=== PATIENT | male | born 1935 | race Caucasian/White ===

== ENCOUNTER → 2018-10-02 | Outpatient (CLI) | payer OTHER ==
[~2018-10-02] MED LIST: ASPI-449 PO; ATOR10TA69 PO; CLOP75TA32 PO; METO-391 PO; VALS80TA30 PO
== END | disposition home or self-care (01) ==
LOC: SHCH 08:04
PROVIDERS: ATTEND Internal Medicine Cardiovascular Disease
DX: I65.23 Occlusion and stenosis of bilateral carotid arteries (principal)
CPT/HCPCS: 93880

== ENCOUNTER → 2019-09-29 | Outpatient (CLI) | payer OTHER | END | disposition home or self-care (01) | LOC: SHCH 14:45 | PROVIDERS: ATTEND Internal Medicine Cardiovascular Disease | DX: I25.10 Atherosclerotic heart disease of native coronary artery without angina pectoris (principal); I10 Essential (primary) hypertension | CPT/HCPCS: 93306 ==

== ENCOUNTER → 2019-10-15 | Outpatient (CLI) | payer OTHER | END | disposition home or self-care (01) | LOC: SHCH 09:40 | PROVIDERS: ATTEND Internal Medicine Cardiovascular Disease | DX: I65.23 Occlusion and stenosis of bilateral carotid arteries (principal); I70.0 Atherosclerosis of aorta; I71.4 Abdominal aortic aneurysm, without rupture | CPT/HCPCS: 93880; 93978 ==

== ENCOUNTER → 2020-10-03 | Outpatient (CLI) | payer MEDICARE | END | disposition home or self-care (01) | LOC: SHCH 14:25 | PROVIDERS: ATTEND Internal Medicine Cardiovascular Disease | DX: I25.10 Atherosclerotic heart disease of native coronary artery without angina pectoris (principal); R06.00 Dyspnea, unspecified | CPT/HCPCS: 93306; 93356 ==

== ENCOUNTER 2020-11-15 05:43 | Day surgery (SDC) | payer MEDICARE ==
[2020-11-13 10:25] LABS: BASOPHILS % (AUTO) 0.3 % (0.0-5.0); EOSINOPHILS % (AUTO) 0.5 % (0.0-8.0); HEMATOCRIT 42.2 % (42-54); LYMPHOCYTES % (AUTO) 10.9 % (21.0-51.0); MEAN CORPUSCULAR HEMOGLOBIN 31.3 pg (27.0-33.0); MEAN CORPUSCULAR HGB CONC 32.7 g/dL (32.0-36.0); MEAN CORPUSCULAR VOLUME 95.7 fL (79-99); NEUTROPHILS % (AUTO) 78.9 % (40.0-77.0); PLATELET COUNT (AUTO) 191 K/uL (130-400); RED BLOOD CELL COUNT(AUTO) 4.41 MIL/uL (4.50-6.20); RED CELL DISTRIBUTION WIDTH 13.4 % (11.0-15.5); WHITE BLOOD COUNT (AUTO) 7.5 K/uL (4.8-10.8)
[2020-11-13 10:26] LABS: APPEARANCE,URINE Clear (CLEAR); BILIRUBIN,URINE Negative (NEGATIVE); COLOR,URINE Yellow (YELLOW); GLUCOSE, URINE (UA) Negative (NEGATIVE); KETONES,URINE Negative (NEGATIVE); LEUKOCYTE ESTERASE ,URINE Negative (NEGATIVE); NITRATE,URINE Negative (NEGATIVE); OCCULT BLOOD,URINE Negative (NEGATIVE); PROTEIN,URINE Negative (NEGATIVE); UROBILINOGEN,URINE 0.2 mg/dL (0.2-1.0)
[2020-11-13 10:32] LABS: CREATININE 1.2 mg/dL (0.5-1.5); POTASSIUM 3.9 mmol/L (3.5-5.1)
[2020-11-13 10:34] LABS: INR 1.06 (0.85-1.15); PROTHROMBIN TIME 11.5 SEC (9.6-11.6)
[2020-11-13 10:35] LABS: PARTIAL THROMBOPLASTIN TIME 27.3 SEC (26.3-35.5)
[2020-11-14 15:32] VITALS: BP 160/80
[~2020-11-15] VITALS: Ht 175.3 cm; Wt 84.3 kg
[2020-11-15] VITALS (10 sets, daily range): BP systolic 119–178; BP diastolic 53–94
[~2020-11-15 05:43] MED LIST changes: +LOSA100T58 PO; -VALS80TA30 PO
[2020-11-15] MEDS ORDERED: SODIUM CHLORIDE 0.9% 1000ML 1,000 ML IV ONE (06:20)
[2020-11-15] MEDS ORDERED: IOHEXOL-350 50ML VIAL IV ONE (07:12)
[2020-11-15] MEDS ORDERED: IOHEXOL 350 MG/ML 100ML INFUS..BTL IV ONE (07:12)
[2020-11-15] MEDS ORDERED: HEPARIN SODIUM 1000UNIT/ML 10ML VIAL ONE (07:12)
[2020-11-15] MEDS ORDERED: SODIUM BICARB 50MEQ 50ML VIAL 50 ML ONE (07:12)
[2020-11-15] MEDS ORDERED: MEPERIDINE-PF 25 MG/ML SYG ONE ×2 (07:12→09:11)
[2020-11-15] MEDS ORDERED: NITROGLYCERIN 2 MG/VIAL VIAL IV ONE (07:12)
[2020-11-15] MEDS ORDERED: LIDOCAINE HCL 2% 20ML ONE (07:13)
[2020-11-15] MEDS ORDERED: MIDAZOLAM HCL 1 MG/ML 2ML VIAL ONE ×2 (07:13→09:11)
[2020-11-15] MEDS ORDERED: METHYLPREDNISOLONE SOD SUCC 125MG/2ML VIAL ONE (07:28)
[2020-11-15] MEDS ORDERED: SODIUM CHLORIDE 0.9% 1000ML 1,000 ML IV SCH ×2 (08:00→09:45)
[2020-11-15] MEDS ORDERED: IOHEXOL-350 75 ML VIAL IV ONE ×2 (08:21→08:52)
[2020-11-15] MEDS ORDERED: HYDRALAZINE HCL 20 MG/ML VIAL ONE (09:13)
[2020-11-15] MEDS ORDERED: ONDANSETRON HCL 4 MG/2 ML VIAL IVP PRN (09:45)
[2020-11-15] MEDS ORDERED: CLOPIDOGREL BISULFATE 300 MG TAB ONE (09:50)
== END 2020-11-15 15:50 | disposition home or self-care (01) ==
LOC: DAH 05:43
PROVIDERS: ATTEND Internal Medicine Cardiovascular Disease
DX: I25.119 Atherosclerotic heart disease of native coronary artery with unspecified angina pectoris (principal); I25.82 Chronic total occlusion of coronary artery; I45.2 Bifascicular block; I10 Essential (primary) hypertension; E78.5 Hyperlipidemia, unspecified; Z79.82 Long term (current) use of aspirin; Z79.01 Long term (current) use of anticoagulants; Z95.1 Presence of aortocoronary bypass graft; Z85.46 Personal history of malignant neoplasm of prostate; Z92.3 Personal history of irradiation; Z79.899 Other long term (current) drug therapy
CPT/HCPCS: 36415 ×2; 71045; 80048; 81003; 85025; 85347 ×2; 85610; 85730; 93005; 93455; 96360; 96361; A4215; A4216; A4221; A4222; A4223 ×3; A4606; A4663; C1725 ×3; C1760; C1769 ×2; C1874; C1887 ×2; C1894 ×2; C9600; J0360; J1644 ×3; J2175 ×2; J2250 ×2; J2930; J3490 ×3; J7030; Q9965; Q9967 ×4; 99156; 99157

== ENCOUNTER → 2022-09-27 | Outpatient (CLI) | payer MEDICARE ==
[~2022-09-27] MED LIST changes: +REGADENOSON 0.4 MG/5 ML PF SYG IVP ONE
== END | disposition home or self-care (01) ==
LOC: SHCH 08:07
PROVIDERS: ATTEND Internal Medicine Cardiovascular Disease
DX: I25.10 Atherosclerotic heart disease of native coronary artery without angina pectoris (principal); Z95.1 Presence of aortocoronary bypass graft; I10 Essential (primary) hypertension; E78.5 Hyperlipidemia, unspecified
CPT/HCPCS: 78452; 96374; 93017; J2785; A9500 ×2

== ENCOUNTER → 2022-12-24 | Outpatient (CLI) | payer MEDICARE ==
[~2022-12-24] MED LIST changes: -LOSA100T58 PO; +LOSA100T59 PO; -REGADENOSON 0.4 MG/5 ML PF SYG IVP ONE
== END | disposition home or self-care (01) ==
LOC: SHCH 10:51
PROVIDERS: ATTEND Internal Medicine Cardiovascular Disease
DX: I65.23 Occlusion and stenosis of bilateral carotid arteries (principal)
CPT/HCPCS: 93880

== ENCOUNTER → 2024-01-13 | Outpatient (CLI) | payer MEDICARE ==
[2024-01-13 16:50] LABS: ALBUMIN 3.9 g/dL (3.5-5.0); BILIRUBIN,TOTAL 0.6 mg/dL (0.2-1.0); CREATININE 1.9 mg/dL (0.5-1.3); POTASSIUM 4.9 mmol/L (3.5-5.1); TOTAL PROTEIN, SERUM 7.5 g/dL (6.0-8.3)
== END | disposition home or self-care (01) ==
LOC: LAB 14:32
PROVIDERS: ATTEND Physician Assistant
DX: I10 Essential (primary) hypertension (principal); E78.5 Hyperlipidemia, unspecified
CPT/HCPCS: 36415; 80053; 83735; 83880

== ENCOUNTER → 2024-02-14 | Outpatient (CLI) | payer MEDICARE | END | disposition home or self-care (01) | LOC: SHCH 08:02 | PROVIDERS: ATTEND Internal Medicine Cardiovascular Disease | DX: I08.1 Rheumatic disorders of both mitral and tricuspid valves (principal); I87.2 Venous insufficiency (chronic) (peripheral); I87.1 Compression of vein; E78.5 Hyperlipidemia, unspecified; I11.9 Hypertensive heart disease without heart failure | CPT/HCPCS: 93306; 93970 ==